=== PATIENT | female | born 1965 | race Caucasian/White ===

== ENCOUNTER 2017-09-14 11:22 | Inpatient (IN) ==
[2017-09-14 11:54] LABS: Basophils # 0.1 K/mcL (0.0-0.2); Eosinophils # 0.3 K/mcL (0.0-0.6); Eosinophils % 3.9 %; Hemoglobin 15.4 g/dL (11.5-15.4); Immature Granulocytes % 0.4 % (0-4); Lymphocytes # 2.2 K/mcL (0.6-4.6); Lymphocytes % 28.8 %; Mean Corpuscular HGB Conc 34.2 g/dL (31.6-35.5); Mean Corpuscular Hemoglobin 29.7 pg (28.0-33.3); Mean Corpuscular Volume 86.9 fL (83.0-100.0); Mean Platelet Volume 9.6 fL (9.4-12.4); Monocytes # 0.5 K/mcL (0.0-1.3); Monocytes % 6.3 %; Neutrophils # 4.6 K/mcL (1.6-8.9); Platelet Count 233 K/mcL (140-400); Red Blood Count 5.18 M/mcL (3.82-4.97); Red Cell Distribution Width 12.4 % (11.5-14.5); Segmented Neutrophils % 59.6 %
[2017-09-14 12:13] LABS: Acetaminophen < 10 mcg/mL (10-20); BUN/Creatinine Ratio 19 (6-26); Blood Urea Nitrogen 15 mg/dL (6-20); Calcium 9.3 mg/dL (8.6-10.3); Carbon Dioxide 25 mEq/L (23-29); Chloride 105 mEq/L (98-107); Ethanol < 10 mg/dL (Less than 10); Glucose 107 mg/dL (70-105); Osmolality,Calculated 285 (280-300); Potassium 3.9 mEq/L (3.5-5.1); Salicylate < 2.5 mg/dL (15.0-30.0); Sodium 137 mEq/L (136-145); eGFR For African Americans > 60 (> 60); eGFR For Non-African Americans > 60 (> 60)
[2017-09-14 12:28] LABS: Bilirubin,Urine Negative (Negative); Blood,Urine Negative (Negative); Color,Urine Yellow (Yellow); Glucose,Urine (UA) Normal (Normal); Ketones,Urine Negative (Negative); Leukocyte Esterase,Urine Small (Negative); Nitrite,Urine Negative (Negative); Protein,Urine Negative (Neg-Trace); Specific Gravity,Urine 1.018 (1.010-1.025); Urobilinogen,Urine Normal (Normal)
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
[2017-09-14 12:31] LABS: Bacteria,Urine Few per hpf (None-Few); Clarity,Urine Clear (Clear); Hyaline Casts,Urine None Seen per lpf (None-Few); RBC,Urine 0-3 per hpf (0-3); Squamous Epithelial Cell,Urine Many per lpf (None-Few)
[2017-09-14 13:03] LABS: Amphetamine Screen,Urine Negative ng/mL (Cutoff=1000); Barbiturate Screen,Urine Negative ng/mL (Cutoff=200); Benzodiazepines Screen,Urine Negative ng/mL (Cutoff=200); Cannabinoid Screen,Urine Negative ng/mL (Cutoff = 50); Cocaine Screen,Urine Negative ng/mL (Cutoff= 300); Opiate Screen,Urine Negative ng/mL (Cutoff=300); Phencyclidine Screen,Urine Negative ng/mL (Cutoff=25)
[2017-09-14] MEDS ORDERED: Mag Hydrox/Al Hydrox/Simeth 30 ML UDC PO PRN (19:52)
[2017-09-14] MEDS ORDERED: Acetaminophen 325 MG TABLET PO PRN (19:52)
[2017-09-14] MEDS ORDERED: *HR* LORazepam 2 MG/ML VIAL IM PRN (19:52)
[2017-09-14] MEDS ORDERED: MOM Conc 10 ML UD.LIQ PO PRN (19:52)
[2017-09-14] MEDS ORDERED: *HR* LORazepam 1 MG TABLET PO PRN (19:52)
[2017-09-14] MEDS ORDERED: Haloperidol Lactate 5 MG/ML VIAL IM PRN (19:52)
[2017-09-14] MEDS: traZODone 50 MG TABLET PO PRN (22:15)
[2017-09-15] MEDS: hydrOXYzine pamoate 25 MG CAPSULE PO PRN (09:12)
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
[2017-09-15] MEDS: FLUoxetine 20 MG CAPSULE PO SCH (11:48)
[2017-09-15] MEDS: Gabapentin 400 MG CAPSULE PO SCH ×2 (15:20→20:54)
[2017-09-15] MEDS ORDERED: Insulin DETEMIR 100 UNIT/ML X5UNITS SQ SCH (21:00)
[2017-09-15] MEDS: clonazePAM 1 MG TABLET PO PRN (21:18)
[2017-09-15] MEDS: Insulin DETEMIR 100 UNIT/ML X5UNITS SQ SCH (22:14)
[2017-09-16] MEDS: FLUoxetine 20 MG CAPSULE PO SCH (08:35)
[2017-09-16] MEDS: Gabapentin 400 MG CAPSULE PO SCH ×3 (08:35→20:15)
[2017-09-16] MEDS: clonazePAM 1 MG TABLET PO PRN ×2 (08:35→20:18)
[2017-09-16] MEDS ORDERED: Insulin DETEMIR 100 UNIT/ML X5UNITS SQ SCH ×2 (09:00→21:00)
--- NOTE | 2017-09-16 14:51 | Psychiatry Progress Note ---
Date of Encounter: 09/16/17 Time of Encounter: 14:48 Subjective Interval history: atient seen for follow-up. Case discussed with treatment team.she denies suicidal ideation, she reports improved sleep,compliant with medication. Awaiting placement. Review of Systems Psychiatric: Reports: depression, anxiety, suicidal ideation, hopelessness Results - Vital Signs Vital Signs: Temp Pulse Resp BP Pulse Ox 97.2 F L 84 16 130/79 94 09/16/17 09:00 09/16/17 09:00 09/16/17 09:00 09/16/17 09:00 09/14/17 17:08 - Labs Labs: Laboratory Results - last 24 hr 09/15/17 09/16/17 21:22 07:43 POC Glucose 173 H 102 H Assessment and Plan (1) Bipolar disorder current episode depressed Current visit: Yes Status: Acute Plan: Continue hospitalization, Close observation, Suicide Precautions per unit protocol, Encourage participation in unit milieu, Group Therapy, Monitor sleep, Monitor appetite Risks, benefits, side effects, alternatives discussed w/pt: Yes Patient agreeable to treatment: Yes Qualifiers: Qualified Code(s): F31.5 - Bipolar disorder, current episode depressed, severe, with psychotic features Consult Discharge Plan - Plan Referrals: [facility] [Outside] - 09/23/17 1:00 pm (The above appointment is with Janice Newby for mental health counselling.You are also scheduled on 10/01/17 at 2pm with Lesli Quesada for psychiatric prescriber follow up. Please call 24 hours in advance if unable to make your appointment.) Psychiatry Exam - Constitutional Vitals: Temp Pulse Resp BP Pulse Ox 97.2 F L 84 16 130/79 94 09/16/17 09:00 09/16/17 09:00 09/16/17 09:00 09/16/17 09:00 09/14/17 17:08 General appearance: age & developmentally appropriate, well-groomed, well- nourished - Musculoskeletal Gait: normal Station: relaxed Strength & Tone: normal for patient - Psychiatric Patient Orientation: Yes Person, Yes Time, Yes Place Level of alertness: Alert Behavior: calm, cooperative Psychomotor activity: Normal Eye Contact: Maintains Eye Contact Mood Description: Euthymic/stable Affect description: congruent with mood, full range Speech Volume: Normal Speech pattern: normal rate, normal rhythm, normal tone, fluent, spontaneous Language & Vocabulary: consistent with education Thought Process: Linear, Goal Oriented, Circumstantial Thought Content: No Suicidal ideation, No Homicidal ideation, No Overt delusions Perceptual Disturbances: No Auditory hallucinations, No Visual hallucinations Attention Span Ability: Capable of Focused Attention Memory Description: Grossly Intact Patient Reliability: Reliable Historian Fund of knowledge: Yes abstraction ability, Yes aware of current events Intelligence Estimate: Average Judgment: Limited Insight: Partial
[2017-09-16 16:36] LABS: BUN/Creatinine Ratio 21 (6-26); Blood Urea Nitrogen 20 mg/dL (6-20); Calcium 9.6 mg/dL (8.6-10.3); Carbon Dioxide 31 mEq/L (23-29); Chloride 103 mEq/L (98-107); Glucose 185 mg/dL (70-105); Osmolality,Calculated 295 (280-300); Potassium 4.4 mEq/L (3.5-5.1); Sodium 139 mEq/L (136-145); eGFR For African Americans > 60 (> 60); eGFR For Non-African Americans 60 (> 60)
[2017-09-16] MEDS: hydrOXYzine pamoate 25 MG CAPSULE PO PRN (20:15)
[2017-09-16] MEDS: traZODone 50 MG TABLET PO PRN (20:15)
[2017-09-16] MEDS: Insulin DETEMIR 100 UNIT/ML X5UNITS SQ SCH (21:15)
[2017-09-17] MEDS: Gabapentin 400 MG CAPSULE PO SCH ×3 (10:09→21:14)
[2017-09-17] MEDS: Insulin DETEMIR 100 UNIT/ML X5UNITS SQ SCH ×2 (10:09→22:52)
[2017-09-17] MEDS: FLUoxetine 20 MG CAPSULE PO SCH (10:09)
--- NOTE | 2017-09-17 15:03 | Psychiatry Progress Note ---
Date of Encounter: 09/17/17 Time of Encounter: 14:52 Subjective Interval history: Patient seen for follow-up. Case discussed with treatment team. She is feeling better more interactive, denied any hopelessness or suicidal thoughts. She is looking forward to possible placement on Wednesday. She is more motivated and positive. Compliant with medication denies any problem with sleep or appetite. Review of Systems Psychiatric: Reports: depression, anxiety, suicidal ideation, hopelessness Results - Vital Signs Vital Signs: Temp Pulse Resp BP Pulse Ox 98.2 F 16 94 112/81 94 09/17/17 09:00 09/17/17 09:00 09/17/17 09:00 09/17/17 09:00 09/14/17 17:08 - Labs Labs: Laboratory Results - last 24 hr 09/16/17 09/16/17 09/17/17 15:56 20:11 09:15 Sodium 139 Potassium 4.4 Chloride 103 Carbon Dioxide 31 H BUN 20 Creatinine 0.97 Est GFR ( Amer) > 60 Est GFR (Non-Af Amer) 60 BUN/Creatinine Ratio 21 Glucose 185 H POC Glucose 256 H 216 H Calculated Osmolality 295 Calcium 9.6 Assessment and Plan (1) Bipolar disorder current episode depressed Current visit: Yes Status: Acute Plan: Continue hospitalization, Close observation, Suicide Precautions per unit protocol, Encourage participation in unit milieu, Group Therapy, Monitor sleep, Monitor appetite Risks, benefits, side effects, alternatives discussed w/pt: Yes Patient agreeable to treatment: Yes Qualifiers: Qualified Code(s): F31.5 - Bipolar disorder, current episode depressed, severe, with psychotic features Consult Discharge Plan - Plan Referrals: [facility] [Outside] (You are going into mental health respite at [facility] on discharge from the hospital. While there, you will be seen daily by the clinic counselors and case resource manager, both individually and in group. ) [facility] - [facility] 1:00 pm (The above appointment is with Janice Newby for mental health counselling.You are also scheduled on 10/01/17 at 2pm with Lesli Quesada for psychiatric prescriber follow up. Please call 24 hours in advance if unable to make your appointment.) Psychiatry Exam - Constitutional Vitals: Temp Pulse Resp BP Pulse Ox 98.2 F 16 94 112/81 94 09/17/17 09:00 09/17/17 09:00 09/17/17 09:00 09/17/17 09:00 09/14/17 17:08 General appearance: age & developmentally appropriate, well-groomed, well- nourished - Musculoskeletal Gait: normal Station: relaxed Strength & Tone: normal for patient - Psychiatric Patient Orientation: Yes Person, Yes Time, Yes Place Level of alertness: Alert Behavior: calm, cooperative Psychomotor activity: Normal Eye Contact: Maintains Eye Contact Mood Description: Euthymic/stable Affect description: congruent with mood, full range Speech Volume: Normal Speech pattern: normal rate, normal rhythm, normal tone, fluent, spontaneous Language & Vocabulary: consistent with education Thought Process: Linear, Goal Oriented Thought Content: No Suicidal ideation, No Homicidal ideation, No Overt delusions Perceptual Disturbances: No Auditory hallucinations, No Visual hallucinations Attention Span Ability: Capable of Focused Attention Memory Description: Grossly Intact Patient Reliability: Reliable Historian Fund of knowledge: Yes abstraction ability, Yes aware of current events Intelligence Estimate: Average Judgment: Limited Insight: Partial
[2017-09-17] MEDS: clonazePAM 1 MG TABLET PO PRN (21:13)
[2017-09-17] MEDS: traZODone 50 MG TABLET PO PRN (21:13)
[2017-09-18] MEDS: Insulin DETEMIR 100 UNIT/ML X5UNITS SQ SCH ×2 (08:26→21:38)
[2017-09-18] MEDS: FLUoxetine 20 MG CAPSULE PO SCH (08:26)
[2017-09-18] MEDS: Gabapentin 400 MG CAPSULE PO SCH ×3 (08:26→21:39)
--- NOTE | 2017-09-18 13:57 | Psychiatry Progress Note ---
Date of Encounter: 09/18/17 Time of Encounter: 13:00 Subjective Interval history: Patient seen for follow-up. Case discussed was nursing staff. She denies any hallucinations or suicidal ideation, denies any problem with sleep or appetite. Participated in activities. Tolerating medication. Her diabetic control is improving. She is awaiting placement next week. Review of Systems Psychiatric: Reports: depression, anxiety, suicidal ideation, hopelessness Results - Vital Signs Vital Signs: Temp Pulse Resp BP Pulse Ox 98.3 F 81 16 120/79 94 09/18/17 09:00 09/18/17 09:00 09/18/17 09:00 09/18/17 09:00 09/14/17 17:08 - Labs Labs: Laboratory Results - last 24 hr 09/17/17 09/18/17 22:09 08:12 POC Glucose 244 H 150 H Assessment and Plan (1) Bipolar disorder current episode depressed Current visit: Yes Status: Acute Plan: Continue hospitalization, Close observation, Suicide Precautions per unit protocol, Encourage participation in unit milieu, Group Therapy, Monitor sleep, Monitor appetite Risks, benefits, side effects, alternatives discussed w/pt: Yes Patient agreeable to treatment: Yes Qualifiers: Qualified Code(s): F31.5 - Bipolar disorder, current episode depressed, severe, with psychotic features Consult Discharge Plan - Plan Referrals: [facility] [Outside] (You are going into mental health respite at [facility] on discharge from the hospital. While there, you will be seen daily by the clinic counselors and case repairer, both individually and in group. ) [facility]/17 1:00 pm (The above appointment is with Janice Newby for mental health counselling.You are also scheduled on 10/01/17 at 2pm with Lesli Quesada for psychiatric prescriber follow up. Please call 24 hours in advance if unable to make your appointment.) Psychiatry Exam - Constitutional Vitals: Temp Pulse Resp BP Pulse Ox 98.3 F 81 16 120/79 94 09/18/17 09:00 09/18/17 09:00 09/18/17 09:00 09/18/17 09:00 09/14/17 17:08 General appearance: age & developmentally appropriate, well-groomed, well- nourished - Musculoskeletal Gait: normal Station: relaxed Strength & Tone: normal for patient - Psychiatric Patient Orientation: Yes Person, Yes Time, Yes Place Level of alertness: Alert Behavior: calm, cooperative Psychomotor activity: Increased Eye Contact: Maintains Eye Contact Mood Description: Euthymic/stable Affect description: congruent with mood, full range Speech Volume: Normal Speech pattern: normal rate, normal rhythm, normal tone, fluent, spontaneous Language & Vocabulary: consistent with education Thought Process: Linear, Goal Oriented Thought Content: No Suicidal ideation, No Homicidal ideation, No Overt delusions Perceptual Disturbances: No Auditory hallucinations, No Visual hallucinations Attention Span Ability: Capable of Focused Attention Memory Description: Grossly Intact Patient Reliability: Reliable Historian Fund of knowledge: Yes abstraction ability, Yes aware of current events Intelligence Estimate: Average Judgment: Limited Insight: Partial
[2017-09-18] MEDS: clonazePAM 1 MG TABLET PO PRN ×2 (13:59→21:39)
[2017-09-18] MEDS: traZODone 50 MG TABLET PO PRN (21:39)
[2017-09-18] MEDS: hydrOXYzine pamoate 25 MG CAPSULE PO PRN (21:40)
[2017-09-19] MEDS: FLUoxetine 20 MG CAPSULE PO SCH (08:43)
[2017-09-19] MEDS: Gabapentin 400 MG CAPSULE PO SCH ×3 (08:44→20:48)
[2017-09-19] MEDS: Insulin DETEMIR 100 UNIT/ML X5UNITS SQ SCH ×2 (08:44→20:46)
[2017-09-19] MEDS: clonazePAM 1 MG TABLET PO PRN ×2 (08:44→20:48)
--- NOTE | 2017-09-19 11:33 | Psychiatry Progress Note ---
Date of Encounter: 09/19/17 Time of Encounter: 10:40 Subjective Interval history: Patient seen for follow-up. Case discussed was nursing staff. Patient is doing well compliant with medication participate in activities. Denied any suicidal ideation, optimistic and looking forward to discharge to respite next week. No behavioral agitation. Review of Systems Psychiatric: Reports: depression, anxiety, suicidal ideation, hopelessness Results - Vital Signs Vital Signs: Temp Pulse Resp BP Pulse Ox 97.8 F 83 18 130/86 94 09/19/17 08:59 09/19/17 08:59 09/19/17 08:59 09/19/17 08:59 09/14/17 17:08 - Labs Labs: Laboratory Results - last 24 hr 09/18/17 09/19/17 22:29 07:56 POC Glucose 307 H 144 H Assessment and Plan (1) Bipolar disorder current episode depressed Current visit: Yes Status: Acute Plan: Continue hospitalization, Close observation, Suicide Precautions per unit protocol, Encourage participation in unit milieu, Group Therapy, Monitor sleep, Monitor appetite Risks, benefits, side effects, alternatives discussed w/pt: Yes Patient agreeable to treatment: Yes Qualifiers: Qualified Code(s): F31.5 - Bipolar disorder, current episode depressed, severe, with psychotic features Consult Discharge Plan - Plan Referrals: [facility] [Outside] (You are going into mental health respite at [facility] on discharge from the hospital. While there, you will be seen daily by the clinic counselors and case assembler, both individually and in group. ) [facility] 1:00 pm (The above appointment is with Janice Newby for mental health counselling.You are also scheduled on 10/01/17 at 2pm with Lesli Quesada for psychiatric prescriber follow up. Please call 24 hours in advance if unable to make your appointment.) Psychiatry Exam - Constitutional Vitals: Temp Pulse Resp BP Pulse Ox 97.8 F 83 18 130/86 94 09/19/17 08:59 09/19/17 08:59 09/19/17 08:59 09/19/17 08:59 09/14/17 17:08 General appearance: age & developmentally appropriate, well-groomed, well- nourished - Musculoskeletal Gait: normal Station: relaxed Strength & Tone: normal for patient - Psychiatric Patient Orientation: Yes Person, Yes Time, Yes Place Level of alertness: Alert Behavior: calm, cooperative Psychomotor activity: Normal Eye Contact: Maintains Eye Contact Mood Description: Euthymic/stable Affect description: congruent with mood, full range, anxious Speech Volume: Normal Speech pattern: normal rate, normal rhythm, normal tone, fluent, spontaneous Language & Vocabulary: consistent with education Thought Process: Linear, Goal Oriented Thought Content: No Suicidal ideation, No Homicidal ideation, No Overt delusions Perceptual Disturbances: No Auditory hallucinations, No Visual hallucinations Attention Span Ability: Capable of Focused Attention Memory Description: Grossly Intact Patient Reliability: Reliable Historian Fund of knowledge: Yes abstraction ability, Yes aware of current events Intelligence Estimate: Average Judgment: Limited Insight: Partial
[2017-09-19] MEDS: traZODone 50 MG TABLET PO PRN (20:48)
[2017-09-20] MEDS: Gabapentin 400 MG CAPSULE PO SCH ×3 (08:36→20:44)
[2017-09-20] MEDS: FLUoxetine 20 MG CAPSULE PO SCH (08:36)
[2017-09-20] MEDS: Insulin DETEMIR 100 UNIT/ML X5UNITS SQ SCH ×2 (08:37→21:55)
[2017-09-20] MEDS: clonazePAM 1 MG TABLET PO PRN ×3 (08:40→20:48)
--- NOTE | 2017-09-20 11:43 | Psychiatry Progress Note ---
Date of Encounter: 09/20/17 Time of Encounter: 11:30 Subjective Interval history: Patient tells me today "I am alright". She states that the reason she was feeling suicidal was over conflict with her son. She states that the stress over that is slowly going away. She finds herself still isolating and having low energy. She asks about a medication change in regards to a possible increase in her antidepressant,which she has been on a long time with no increased dosing in the past year. I discussed with her increasing her Prozac to 60 mg from 40mg which she was agreeable to. She finds that the medication used to be helpful, but does not feel like it is helping much anymore. She states that she does not think it was because she was not being compliant with the Prozac She has stress over being homeless, but there is a possibility of placement [facility]. She states her appetites improving, her sleep is good. She denies any suicidal/homicidal ideation at this time. She denies any auditory or visual hallucinations. She is making preparation for possible discharge tomorrow once [facility] housing is confirmed for her. Review of Systems Psychiatric: Reports: depression, anxiety, suicidal ideation, hopelessness Results - Vital Signs Vital Signs: Temp Pulse Resp BP Pulse Ox 97.2 F L 84 18 135/80 94 09/20/17 09:00 09/20/17 09:00 09/20/17 09:00 09/20/17 09:00 09/14/17 17:08 - Labs Labs: Laboratory Results - last 24 hr 09/19/17 09/20/17 20:28 07:50 POC Glucose 245 H 145 H Assessment and Plan (1) Bipolar disorder current episode depressed Current visit: Yes Status: Acute Plan: Continue hospitalization, Close observation, Suicide Precautions per unit protocol, Group Therapy Risks, benefits, side effects, alternatives discussed w/pt: Yes (Increase in Prozac targeting depression) Patient agreeable to treatment: Yes Qualifiers: Current episode severity: moderate Qualified Code(s): F31.32 - Bipolar disorder, current episode depressed, moderate Consult Discharge Plan - Plan Referrals: [facility] [Outside] (You are going into mental health respite at [facility] on discharge from the hospital. While there, you will be seen daily by the clinic counselors and behavioral health case manager, both individually and in group. ) [facility] - 09/23/17 1:00 pm (The above appointment is with Janice Newby for mental health counselling.You are also scheduled on 10/01/17 at 2pm with Lesli Quesada for psychiatric prescriber follow up. Please call 24 hours in advance if unable to make your appointment.) Psychiatry Exam - Constitutional Vitals: Temp Pulse Resp BP Pulse Ox 97.2 F L 84 18 135/80 94 09/20/17 09:00 09/20/17 09:00 09/20/17 09:00 09/20/17 09:00 09/14/17 17:08 General appearance: age & developmentally appropriate, well-groomed, well- nourished - Musculoskeletal Gait: normal Station: erect Strength & Tone: normal for patient - Psychiatric Patient Orientation: Yes Person, Yes Time, Yes Place, Yes Circumstance Level of alertness: Alert Behavior: calm Psychomotor activity: Normal Eye Contact: Maintains Eye Contact Mood Description: Euthymic/stable Affect description: congruent with mood Speech Volume: Normal Speech pattern: normal rate, normal rhythm, normal tone Language & Vocabulary: consistent with education Thought Process: Intact, Logical, Linear Thought Content: Yes Intact Attention Span Ability: Capable of Focused Attention Memory Description: Grossly Intact Patient Reliability: Reliable Historian Fund of knowledge: Yes abstraction ability Intelligence Estimate: Average Judgment: Fair Insight: Partial
[2017-09-20] MEDS: traZODone 50 MG TABLET PO PRN (20:44)
[2017-09-21] MEDS: Insulin DETEMIR 100 UNIT/ML X5UNITS SQ SCH (08:14)
[2017-09-21] MEDS: Gabapentin 400 MG CAPSULE PO SCH ×2 (08:16→14:26)
[2017-09-21] MEDS ORDERED: FLUoxetine 20 MG CAPSULE PO SCH (09:00)
[2017-09-21 09:34] VITALS: BP 122/82
[2017-09-21] MEDS: clonazePAM 1 MG TABLET PO PRN ×2 (09:59→14:26)
--- NOTE | 2017-09-21 13:47 | Discharge Summary ---
Date of Encounter: 09/21/17 Time of Encounter: 13:40 Diagnosis - Discharge Diagnosis (1) Bipolar disorder current episode depressed Status: Acute Qualifiers: Current episode severity: moderate Qualified Code(s): F31.32 - Bipolar disorder, current episode depressed, moderate Medications - Discharge Medications Prescriptions: FLUoxetine HCl [Prozac] 60 mg PO DAILY 30 Days #30 capsule traZODone [TraZODone] 50 mg PO HS PRN 30 Days #30 tablet PRN Reason: Insomnia Gabapentin [Neurontin] 800 mg PO TID #90 tablet 02/25/16 [Rx] Doxepin [Sinequan] 25 mg PO DAILY 09/15/17 [History] Insulin Glargine,Hum.rec.anlog [Lantus Solostar] 20 units SQ QAM 09/15/17 [ History] Insulin Glargine,Hum.rec.anlog [Lantus Solostar] 30 units SQ HS 09/15/17 [ History] Lurasidone HCl [Latuda] 80 mg PO HS 09/15/17 [History] clonazePAM [Klonopin] 2 mg PO TID PRN 09/15/17 [History] hydrOXYzine pamoate [HydrOXYzine Pamoate] 50 mg PO TID PRN 09/15/17 [History] FLUoxetine HCl [Prozac] 60 mg PO DAILY 30 Days #30 capsule 09/21/17 [Rx] traZODone [TraZODone] 50 mg PO HS PRN 30 Days #30 tablet 09/21/17 [Rx] 3 Allergy/AdvReac Type Severity Reaction Status Date / Time No Known Allergies Allergy Verified 09/15/17 09:13 Results Procedures and tests throughout hospitalization: Completed Lab Orders Category Date Time Status Chem 7 [Basic Metabolic Panel] Routine Lab 09/16/17 15:56 Completed Provider Date of admission: 09/14/17 16:45 Primary care physician: PCP NONE Psychiatry Exam - Constitutional Vitals: Temp Pulse Resp BP Pulse Ox 98.5 F 87 18 122/82 94 09/21/17 09:00 09/21/17 09:00 09/21/17 09:00 09/21/17 09:00 09/14/17 17:08 General appearance: age & developmentally appropriate - Musculoskeletal Gait: normal Station: slouched Strength & Tone: normal for patient - Psychiatric Patient Orientation: Yes Person, Yes Time, Yes Place, Yes Circumstance Level of alertness: Alert Behavior: calm Psychomotor activity: Normal Eye Contact: Maintains Eye Contact Mood Description: Euthymic/stable Affect description: congruent with mood Speech Volume: Normal Speech pattern: normal rate, normal rhythm, normal tone Language & Vocabulary: consistent with education Thought Process: Intact, Logical, Linear Thought Content: Yes Intact Attention Span Ability: Capable of Focused Attention Memory Description: Grossly Intact Patient Reliability: Reliable Historian Fund of knowledge: Yes abstraction ability Intelligence Estimate: Average Judgment: Good Insight: Full Hospital Course Hospital course: Ms. Rutledge is a 52 year old female who was being treated for depression. When I meet with her today, she tells me, "I feel good". She denies any side effects from the increase in Prozac targeting her depression. She states she is not isolating as much as she used to and feels more hopeful about the future. She is pleased that she was able to get into [place] for her temporary housing. She states the Trazodone is helping her "get some really good sleep." She states she slept 7 hours last night which is a great improvement for her. She is no longer depressed. No SI/HI. No A/V hallucination. Her mood is stable. No other issues. She assures me that she will keep her follow up appointments with therapy and medication management. Time spent discussing smoking cessation with patient: 3 to 10 minutes Does patient wish to continue nicotine replacement upon disc: No - Time Spent with Patient Total time spent providing and/or coordinating discharge services:20 min Less than 30 minutes Assessment and Plan - Patient/Caregiver Discharge Instructions Activity: resume usual activities as tolerated Diet: diabetic diet - Follow up Plan [facility]Outside[facility] (You are going into mental health respite at [facility] on discharge from the hospital. While there, you will be seen daily by the clinic counselors and case monitor, both individually and in group. ) [facility] - 09/23/17 1:00 pm (The above appointment is with Janice Newby for mental health counselling.You are also scheduled on 10/01/17 at 2pm with Lesli Quesada for psychiatric prescriber follow up. Please call 24 hours in advance if unable to make your appointment.) Functional capacity at discharge: independent ambulation Overall status at discharge: Stable Disposition: Transfer Other Quality - Multiple Antipsychotics Patient discharged on 2 or more antipsychotic medications: No Procedures - Procedures Procedures: Medication Management, Crisis Stabilization, Supportive Therapy, Group Therapy
== END 2017-09-21 18:00 | disposition other institution (70) | DRG 885 ==
LOC: EMEROO 11:22 → 1ANU 16:45 → SUATTDRO 16:45 → 1ANU 16:49
PROVIDERS: ADMIT Psychiatry & Neurology Psychiatry; ATTEND Psychiatry & Neurology Psychiatry

== ENCOUNTER 2019-07-14 17:26 | Inpatient (IN) ==
[2019-07-14 17:55] LABS: Basophils # 0.1 K/mcL (0.0-0.2); Basophils % 0.9 %; Eosinophils # 0.3 K/mcL (0.0-0.6); Eosinophils % 3.2 %; Hematocrit 42.5 % (35.3-44.9); Hemoglobin 14.1 g/dL (11.5-15.4); Immature Granulocytes % 0.4 % (0-4); Lymphocytes # 2.8 K/mcL (0.6-4.6); Lymphocytes % 35.2 %; Mean Corpuscular HGB Conc 33.2 g/dL (31.6-35.5); Mean Corpuscular Hemoglobin 28.8 pg (28.0-33.3); Mean Corpuscular Volume 86.9 fL (83.0-100.0); Mean Platelet Volume 9.8 fL (9.4-12.4); Monocytes # 0.5 K/mcL (0.0-1.3); Monocytes % 6.4 %; Neutrophils # 4.2 K/mcL (1.6-8.9); Platelet Count 257 K/mcL (140-400); Red Blood Count 4.89 M/mcL (3.82-4.97); Red Cell Distribution Width 12.8 % (11.5-14.5); Segmented Neutrophils % 53.9 %; White Blood Count 7.8 K/mcL (4.3-11.1)
[2019-07-14 18:14] LABS: Acetaminophen < 10 mcg/mL (10-20); BUN/Creatinine Ratio 21 (6-26); Blood Urea Nitrogen 15 mg/dL (6-20); Carbon Dioxide 25 mEq/L (23-29); Chloride 101 mEq/L (98-107); Ethanol < 10 mg/dL (Less than 10); Glucose 301 mg/dL (70-105); Osmolality,Calculated 286 (280-300); Potassium 4.1 mEq/L (3.5-5.1); Salicylate < 2.5 mg/dL (15.0-30.0); Sodium 132 mEq/L (136-145); eGFR For African Americans > 60 (> 60); eGFR For Non-African Americans > 60 (> 60)
[2019-07-14 18:58] LABS: Bilirubin,Urine Negative (Negative); Blood,Urine Negative (Negative); Clarity,Urine Clear (Clear); Color,Urine Yellow (Yellow); Glucose,Urine (UA) >=1000 mg/dL (Normal); Ketones,Urine Negative (Negative); Leukocyte Esterase,Urine Small (Negative); Nitrite,Urine Negative (Negative); Protein,Urine Negative (Neg-Trace); Specific Gravity,Urine 1.028 (1.010-1.025); Urobilinogen,Urine Normal (Normal)
[2019-07-14 18:59] LABS: Bacteria,Urine None Seen per hpf (None-Few); Hyaline Casts,Urine None Seen per lpf (None-Few); RBC,Urine 0-3 per hpf (0-3); Squamous Epithelial Cell,Urine Many per lpf (None-Few); WBC,Urine 30-50 per hpf (0-3)
[2019-07-14 19:10] LABS: Transitional Epi Cells,Urine Few per hpf (None-Few)
[2019-07-14 19:22] LABS: Amphetamine Screen,Urine Positive ng/mL (Cutoff=1000); Barbiturate Screen,Urine Negative ng/mL (Cutoff=200); Benzodiazepines Screen,Urine Negative ng/mL (Cutoff=200); Cannabinoid Screen,Urine Negative ng/mL (Cutoff = 50); Cocaine Screen,Urine Negative ng/mL (Cutoff= 300); Opiate Screen,Urine Negative ng/mL (Cutoff=300); Phencyclidine Screen,Urine Negative ng/mL (Cutoff=25)
[2019-07-14] MEDS ORDERED: cephALEXin 250 MG CAPSULE PO ONE (20:06)
[2019-07-14] MEDS ORDERED: *HR* LORazepam 2 MG/ML VIAL IM PRN (22:34)
[2019-07-14] MEDS ORDERED: MOM Conc 10 ML UD.LIQ PO PRN (22:34)
[2019-07-14] MEDS ORDERED: Mag Hydrox/Al Hydrox/Simeth 30 ML UDC PO PRN (22:34)
[2019-07-14] MEDS ORDERED: hydrOXYzine pamoate 25 MG CAPSULE PO PRN (22:34)
[2019-07-14] MEDS ORDERED: haloperidoL 5 MG TABLET PO PRN (22:34)
[2019-07-14] MEDS ORDERED: QUEtiapine Fumarate 25 MG TABLET PO PRN (22:34)
[2019-07-14] MEDS ORDERED: *HR* LORazepam 1 MG TABLET PO PRN (22:34)
[2019-07-14] MEDS ORDERED: Haloperidol Lactate 5 MG/ML VIAL IM PRN (22:34)
[2019-07-14] MEDS: Ibuprofen 400 MG TABLET PO PRN (23:48)
[2019-07-15] MEDS: Gabapentin 400 MG CAPSULE PO SCH ×3 (10:19→20:35)
[2019-07-15] MEDS: clonazePAM 1 MG TABLET PO PRN ×2 (10:22→20:35)
[2019-07-15] MEDS: Insulin LISPRO 300 UNITS/3 ML VIAL SQ SCH ×3 (11:19→20:44)
[2019-07-15] MEDS: cephALEXin 500 MG CAPSULE PO SCH ×2 (14:23→20:35)
[2019-07-15] MEDS: Ibuprofen 400 MG TABLET PO PRN (20:35)
[2019-07-15] MEDS: QUEtiapine Fumarate 100 MG TABLET PO SCH (20:35)
[2019-07-16 08:14] LABS: Estimated Average Glucose 295 mg/dl
[2019-07-16] MEDS: Insulin LISPRO 300 UNITS/3 ML VIAL SQ SCH ×4 (08:31→20:44)
[2019-07-16] MEDS: cephALEXin 500 MG CAPSULE PO SCH ×2 (08:34→20:41)
[2019-07-16] MEDS: Gabapentin 400 MG CAPSULE PO SCH ×3 (08:34→20:41)
[2019-07-16 10:44] LABS: Chol/HDL Ratio 4.8 (0-4.9)
[2019-07-16 10:59] LABS: Thyroid Stimulating Hormone 3.728 mcIU/mL (0.340-5.600)
[2019-07-16] MEDS: QUEtiapine Fumarate 100 MG TABLET PO SCH (20:41)
[2019-07-17] MEDS: Insulin LISPRO 300 UNITS/3 ML VIAL SQ SCH (07:43)
[2019-07-17] MEDS: cephALEXin 500 MG CAPSULE PO SCH (08:42)
[2019-07-17] MEDS: Gabapentin 400 MG CAPSULE PO SCH (08:42)
[2019-07-17 09:30] VITALS: BP 116/72
== END 2019-07-17 10:50 | disposition home or self-care (01) ==
LOC: EMEROOARM 17:26 → 1ANU 17:26
PROVIDERS: ADMIT Psychiatry & Neurology Psychiatry; ATTEND Psychiatry & Neurology Psychiatry

== ENCOUNTER 2019-10-11 12:40 | Observation (INO) ==
[2019-10-11 13:44] LABS: Basophils # 0.1 K/mcL (0.0-0.2); Basophils % 0.7 %; Eosinophils # 0.2 K/mcL (0.0-0.6); Eosinophils % 2.1 %; Hematocrit 44.8 % (35.3-44.9); Hemoglobin 14.3 g/dL (11.5-15.4); Immature Granulocytes % 0.4 % (0-4); Lymphocytes # 1.7 K/mcL (0.6-4.6); Lymphocytes % 23.2 %; Mean Corpuscular HGB Conc 31.9 g/dL (31.6-35.5); Mean Corpuscular Hemoglobin 26.9 pg (28.0-33.3); Mean Corpuscular Volume 84.4 fL (83.0-100.0); Mean Platelet Volume 9.9 fL (9.4-12.4); Monocytes # 0.5 K/mcL (0.0-1.3); Monocytes % 6.3 %; Neutrophils # 4.8 K/mcL (1.6-8.9); Platelet Count 195 K/mcL (140-400); Red Blood Count 5.31 M/mcL (3.82-4.97); Red Cell Distribution Width 13.2 % (11.5-14.5); Segmented Neutrophils % 67.3 %; White Blood Count 7.2 K/mcL (4.3-11.1)
[2019-10-11 13:50] LABS: Bacteria,Urine Few per hpf (None-Few); Bilirubin,Urine Negative (Negative); Blood,Urine Negative (Negative); Clarity,Urine Clear (Clear); Color,Urine Light-Yellow (Yellow); Glucose,Urine (UA) >=1000 mg/dL (Normal); Ketones,Urine Negative (Negative); Leukocyte Esterase,Urine Moderate (Negative); Mucus,Urine Few per lpf (None-Few); Nitrite,Urine Negative (Negative); PH,Urine 5.5 pH Units (5.0-8.0); Protein,Urine Trace mg/dL (Neg-Trace); Specific Gravity,Urine > 1.030 (1.010-1.025); Squamous Epithelial Cell,Urine Few per hpf (None-Few); Urobilinogen,Urine Normal (Normal)
[2019-10-11 13:55] LABS: Amphetamine Screen,Urine Negative ng/mL (Cutoff=1000); Barbiturate Screen,Urine Negative ng/mL (Cutoff=200); Benzodiazepines Screen,Urine Negative ng/mL (Cutoff=200); Cannabinoid Screen,Urine Negative ng/mL (Cutoff = 50); Cocaine Screen,Urine Negative ng/mL (Cutoff= 300); Opiate Screen,Urine Negative ng/mL (Cutoff=300); Phencyclidine Screen,Urine Negative ng/mL (Cutoff=25)
[2019-10-11 14:02] LABS: Acetaminophen < 10 mcg/mL (10-20); BUN/Creatinine Ratio 18 (6-26); Blood Urea Nitrogen 16 mg/dL (6-20); Calcium 8.8 mg/dL (8.6-10.3); Carbon Dioxide 25 mEq/L (23-29); Chloride 100 mEq/L (98-107); Ethanol < 10 mg/dL (Less than 10); Glucose 404 mg/dL (70-105); Osmolality,Calculated 290 (280-300); Potassium 4.3 mEq/L (3.5-5.1); Salicylate < 2.5 mg/dL (15.0-30.0); Sodium 131 mEq/L (136-145); eGFR For African Americans > 60 (> 60); eGFR For Non-African Americans > 60 (> 60)
[2019-10-11] MEDS ORDERED: NON-FORMULARY MEDICATION 1 EACH EACH (Fluticasone Propionate [Flovent Hfa] 2 PUFF) IH PRN (15:54)
[2019-10-11] MEDS ORDERED: QUEtiapine Fumarate 25 MG TABLET PO PRN (15:56)
[2019-10-11] MEDS ORDERED: MOM Conc 10 ML UD.LIQ PO PRN (15:56)
[2019-10-11] MEDS ORDERED: Haloperidol Lactate 5 MG/ML VIAL IM PRN (15:56)
[2019-10-11] MEDS ORDERED: Ibuprofen 400 MG TABLET PO PRN (15:56)
[2019-10-11] MEDS ORDERED: haloperidoL 5 MG TABLET PO PRN (15:56)
[2019-10-11] MEDS ORDERED: *HR* LORazepam 1 MG TABLET PO PRN (15:56)
[2019-10-11] MEDS ORDERED: *HR* LORazepam 2 MG/ML VIAL IM PRN (15:56)
[2019-10-11] MEDS ORDERED: hydrOXYzine pamoate 25 MG CAPSULE PO PRN (15:56)
[2019-10-11] MEDS ORDERED: Mag Hydrox/Al Hydrox/Simeth 30 ML UDC PO PRN (15:56)
[2019-10-11] MEDS: Gabapentin 400 MG CAPSULE PO SCH ×2 (16:33→20:36)
[2019-10-11] MEDS: clonazePAM 1 MG TABLET PO SCH ×2 (16:34→20:36)
[2019-10-11] MEDS: risperiDONE 1 MG TABLET PO SCH (20:36)
[2019-10-11] MEDS ORDERED: QUEtiapine Fumarate 300 MG TABLET PO SCH (21:00)
[2019-10-11] MEDS ORDERED: Insulin DETEMIR 100 UNIT/ML X5UNITS SQ SCH (21:00)
[2019-10-12 07:29] VITALS: BP 125/89
[2019-10-12] MEDS: risperiDONE 1 MG TABLET PO SCH (08:43)
[2019-10-12] MEDS: Gabapentin 400 MG CAPSULE PO SCH (08:43)
[2019-10-12] MEDS: clonazePAM 1 MG TABLET PO SCH (08:43)
[2019-10-12] MEDS ORDERED: Insulin DETEMIR 100 UNIT/ML X5UNITS SQ SCH (09:00)
== END 2019-10-12 13:00 | disposition home or self-care (01) ==
LOC: EMEROOARM 12:40 → 1ANU 15:26 → INTOOBSV 15:56 → 1ANU 16:47
PROVIDERS: ADMIT Psychiatry & Neurology Psychiatry; ATTEND Psychiatry & Neurology Psychiatry

== ENCOUNTER 2020-08-28 14:31 | Inpatient (IN) ==
[2020-08-28] MEDS ORDERED: 0.9 % Sodium Chloride 1,000 ML IVC ONE (17:08)
[2020-08-28] MEDS ORDERED: Vancomycin 1,250 MG/262.5 ML IV.SOLN IVPB ONE (17:08)
[2020-08-28] MEDS ORDERED: Cefepime HCl 2,000 MG in Water for inj. (sterile) 20 ML IVP ONE (17:08)
[2020-08-28] MEDS ORDERED: Morphine Sulfate 2 MG/ML SYRINGE IVP ONE (17:53)
[2020-08-28 18:13] LABS: Basophils # 0.1 K/mcL (0.0-0.2); Basophils % 0.8 %; Eosinophils # 0.2 K/mcL (0.0-0.6); Eosinophils % 2.3 %; Hematocrit 46.1 % (35.3-44.9); Hemoglobin 15.4 g/dL (11.5-15.4); Immature Granulocytes % 0.4 % (0-4); Lymphocytes # 2.4 K/mcL (0.6-4.6); Lymphocytes % 26.1 %; Mean Corpuscular HGB Conc 33.4 g/dL (31.6-35.5); Mean Corpuscular Hemoglobin 28.2 pg (28.0-33.3); Mean Corpuscular Volume 84.3 fL (83.0-100.0); Mean Platelet Volume 10.1 fL (9.4-12.4); Monocytes # 0.7 K/mcL (0.0-1.3); Neutrophils # 5.8 K/mcL (1.6-8.9); Platelet Count 250 K/mcL (140-400); Red Blood Count 5.47 M/mcL (3.82-4.97); Red Cell Distribution Width 13.7 % (11.5-14.5); Segmented Neutrophils % 62.4 %; White Blood Count 9.3 K/mcL (4.3-11.1)
[2020-08-28 18:21] LABS: Prothrombin Time 11.3 Seconds (9.4-12.1)
[2020-08-28 18:24] LABS: Activated Partial Thrombo Time 28.8 Seconds (26.0-36.0)
[2020-08-28 18:28] LABS: Alanine Aminotransferase 27 Units/L (7-52); Albumin 4.2 g/dL (3.5-5.7); Albumin/Globulin Ratio 1.1 (1.1-2.2); Alkaline Phosphatase 106 Units/L (34-104); Aspartate Amino Transferase 14 Units/L (13-39); BUN/Creatinine Ratio 28 (6-26); Bilirubin,Direct 0.1 mg/dL (0.0-0.2); Bilirubin,Indirect 0.5 mg/dL (0.0-1.0); Bilirubin,Total 0.6 mg/dL (0.3-1.0); Blood Urea Nitrogen 23 mg/dL (6-20); Calcium 9.9 mg/dL (8.6-10.3); Carbon Dioxide 26 mEq/L (23-29); Chloride 95 mEq/L (98-107); Glucose 393 mg/dL (70-105); Magnesium 2.1 mg/dL (1.6-2.6); Osmolality,Calculated 292 (280-300); Phosphorous 3.8 mg/dL (2.7-4.5); Potassium 4.3 mEq/L (3.5-5.1); Sodium 131 mEq/L (136-145); Total Protein 8.2 g/dL (6.4-8.9); eGFR For African Americans > 60 (> 60); eGFR For Non-African Americans > 60 (> 60)
[2020-08-28 18:29] LABS: Troponin I < 0.03 ng/mL (< 0.04)
[2020-08-28] MEDS ORDERED: Insulin Human Regular 10 UNIT in 0.9 % Sodium Chloride 10 ML IV ONE (18:56)
[2020-08-28] MEDS ORDERED: Melatonin 3 MG TABLET PO PRN (20:12)
[2020-08-28] MEDS ORDERED: Naloxone 0.4 MG/ML INJ IVP PRN (20:12)
[2020-08-28] MEDS ORDERED: Ondansetron 4 MG/2 ML VIAL IVP PRN (20:12)
[2020-08-28 20:18] LABS: Bilirubin,Urine Negative (Negative); Blood,Urine Negative (Negative); Budding Yeast,Urine Many per hpf (None Seen); Clarity,Urine Turbid (Clear); Color,Urine Light-Yellow (Yellow); Glucose,Urine (UA) >=1000 mg/dL (Normal); Ketones,Urine Negative (Negative); Leukocyte Esterase,Urine Moderate (Negative); Nitrite,Urine Negative (Negative); Protein,Urine Negative (Neg-Trace); RBC,Urine TNTC per hpf (0-3); Specific Gravity,Urine > 1.030 (1.010-1.025); Squamous Epithelial Cell,Urine Few per hpf (None-Few); Urobilinogen,Urine Normal (Normal); WBC,Urine TNTC per hpf (0-3)
[2020-08-28] MEDS ORDERED: *HR* Dextrose 50 % in Water (Vial) 50 ML VIAL IVP PRN (20:18)
[2020-08-28] MEDS ORDERED: D5% in Water 1,000 ML IVC PRN (20:18)
[2020-08-28] MEDS ORDERED: Dextrose Gel 15 GM/37.5 ML TUBE PO PRN ×2 (20:18)
[2020-08-28 21:48] LABS: Estimated Average Glucose 381 mg/dl; Hemoglobin A1C 14.9 %
[2020-08-28] MEDS: Cefepime HCl 1,000 MG in Water for inj. (sterile) 10 ML IVP SCH (23:14)
[2020-08-28] MEDS: *HR* HYDROcodone/Acet 5/325 mg TABLET PO PRN (23:14)
[2020-08-28] MEDS: Insulin LISPRO 300 UNITS/3 ML VIAL SUBQ SCH (23:14)
[2020-08-28] MEDS: Insulin DETEMIR 100 UNIT/ML X5UNITS SUBQ SCH (23:14)
[2020-08-29 01:01] LABS: Basophils # 0.1 K/mcL (0.0-0.2); Basophils % 0.8 %; Eosinophils # 0.3 K/mcL (0.0-0.6); Eosinophils % 3.1 %; Hematocrit 42.2 % (35.3-44.9); Hemoglobin 13.9 g/dL (11.5-15.4); Immature Granulocytes % 0.4 % (0-4); Lymphocytes # 2.4 K/mcL (0.6-4.6); Lymphocytes % 26.9 %; Mean Corpuscular HGB Conc 32.9 g/dL (31.6-35.5); Mean Corpuscular Volume 85.1 fL (83.0-100.0); Monocytes # 0.7 K/mcL (0.0-1.3); Monocytes % 7.4 %; Neutrophils # 5.5 K/mcL (1.6-8.9); Platelet Count 210 K/mcL (140-400); Red Blood Count 4.96 M/mcL (3.82-4.97); Red Cell Distribution Width 13.9 % (11.5-14.5); Segmented Neutrophils % 61.4 %; White Blood Count 8.9 K/mcL (4.3-11.1)
[2020-08-29 01:12] LABS: BUN/Creatinine Ratio 30 (6-26); Blood Urea Nitrogen 19 mg/dL (6-20); Calcium 8.4 mg/dL (8.6-10.3); Carbon Dioxide 23 mEq/L (23-29); Chloride 102 mEq/L (98-107); Glucose 343 mg/dL (70-105); Osmolality,Calculated 294 (280-300); Potassium 3.6 mEq/L (3.5-5.1); Sodium 134 mEq/L (136-145); eGFR For African Americans > 60 (> 60); eGFR For Non-African Americans > 60 (> 60)
[2020-08-29] MEDS: Insulin LISPRO 300 UNITS/3 ML VIAL SUBQ SCH ×3 (05:42→19:02)
[2020-08-29] MEDS: clonazePAM 1 MG TABLET PO SCH ×3 (07:45→21:45)
[2020-08-29] MEDS: Cefepime HCl 1,000 MG in Water for inj. (sterile) 10 ML IVP SCH (07:46)
[2020-08-29] MEDS: *HR* HYDROcodone/Acet 5/325 mg TABLET PO PRN ×2 (07:59→19:19)
[2020-08-29] MEDS: Piperacillin/Tazobactam 3.375 GM in 0.9 % Sodium Chloride Mini Bag 100 ML IVPB SCH ×2 (10:00→16:59)
[2020-08-29 11:47] LABS: C-Reactive Protein 31 mg/L (Less than 10)
[2020-08-29] MEDS ORDERED: Tdap (Boostrix) Vaccine 0.5 ML SYRINGE IM ONE (11:51)
[2020-08-29] MEDS: Gabapentin 400 MG CAPSULE PO SCH ×2 (16:12→21:45)
[2020-08-29] MEDS: *HR* Heparin 5,000 UNIT/ML VIAL SQ SCH (19:01)
[2020-08-29] MEDS ORDERED: QUEtiapine Fumarate 300 MG TABLET PO SCH (21:00)
[2020-08-29] MEDS: Insulin DETEMIR 100 UNIT/ML X5UNITS SUBQ SCH (21:45)
[2020-08-30] MEDS: Insulin LISPRO 300 UNITS/3 ML VIAL SUBQ SCH ×6 (01:18→20:58)
[2020-08-30] MEDS: Piperacillin/Tazobactam 3.375 GM in 0.9 % Sodium Chloride Mini Bag 100 ML IVPB SCH ×3 (01:21→16:35)
[2020-08-30] MEDS: *HR* Heparin 5,000 UNIT/ML VIAL SQ SCH ×2 (06:04→16:36)
[2020-08-30] MEDS ORDERED: Vancomycin 1,250 MG/262.5 ML IV.SOLN IVPB SCH (07:00)
[2020-08-30] MEDS ORDERED: Insulin DETEMIR 100 UNIT/ML X5UNITS SUBQ SCH (09:00)
[2020-08-30] MEDS: Gabapentin 400 MG CAPSULE PO SCH ×3 (09:42→21:01)
[2020-08-30] MEDS: clonazePAM 1 MG TABLET PO SCH ×2 (09:43→21:01)
[2020-08-30] MEDS ORDERED: Lidocaine 1% 20 ML MDV ONE (11:30)
[2020-08-30] MEDS ORDERED: Lidocaine -MPF 2% 2 ML VIAL ONE (12:08)
[2020-08-30] MEDS ORDERED: *HR* Propofol 200 MG/20 ML VIAL IVP ONE (12:08)
[2020-08-30] MEDS ORDERED: *HR* FentaNYL (PF) 100 MCG/2 ML VIAL ONE ×2 (12:08→13:58)
[2020-08-30] MEDS ORDERED: Naloxone 0.4 MG/ML INJ IVP PRN (12:57)
[2020-08-30] MEDS ORDERED: D5% in Water 1,000 ML IVC PRN (12:57)
[2020-08-30] MEDS ORDERED: *HR* Dextrose 50 % in Water (Vial) 50 ML VIAL IVP PRN (12:57)
[2020-08-30] MEDS ORDERED: Ondansetron 4 MG/2 ML VIAL IVP PRN (12:57)
[2020-08-30] MEDS ORDERED: Dextrose Gel 15 GM/37.5 ML TUBE PO PRN ×2 (12:57)
[2020-08-30] MEDS ORDERED: Ondansetron 4 MG/2 ML VIAL ONE (14:04)
[2020-08-30] MEDS: *HR* HYDROcodone/Acet 5/325 mg TABLET PO PRN (14:20)
[2020-08-30] MEDS ORDERED: clonazePAM 1 MG TABLET PO SCH (15:00)
[2020-08-30] MEDS ORDERED: *HR* HYDROmorphone (PF) 1 MG/ML SYRINGE IVP ONE (16:36)
[2020-08-30] MEDS ORDERED: Insulin LISPRO 300 UNITS/3 ML VIAL SUBQ SCH (18:00)
[2020-08-30] MEDS ORDERED: Morphine Sulfate 2 MG/ML SYRINGE IVP ONE ×2 (18:22)
[2020-08-30] MEDS ORDERED: Acetaminophen IV 1,000 MG/100 ML BAG IVPB PRN (18:23)
[2020-08-30] MEDS ORDERED: *HR* FentaNYL PATCH 12 MCG PATCH TD SCH (18:30)
[2020-08-30] MEDS: Vancomycin 1,250 MG/262.5 ML IV.SOLN IVPB SCH (19:32)
[2020-08-30] MEDS: QUEtiapine Fumarate 300 MG TABLET PO SCH (21:01)
[2020-08-30] MEDS: Insulin DETEMIR 100 UNIT/ML X5UNITS SUBQ SCH (21:01)
[2020-08-31] MEDS: Piperacillin/Tazobactam 3.375 GM in 0.9 % Sodium Chloride Mini Bag 100 ML IVPB SCH ×3 (00:02→16:16)
[2020-08-31 01:45] LABS: Basophils # 0.1 K/mcL (0.0-0.2); Basophils % 0.8 %; Eosinophils # 0.2 K/mcL (0.0-0.6); Eosinophils % 2.8 %; Hematocrit 40.3 % (35.3-44.9); Hemoglobin 12.9 g/dL (11.5-15.4); Immature Granulocytes % 0.5 % (0-4); Lymphocytes # 1.7 K/mcL (0.6-4.6); Lymphocytes % 28.3 %; Mean Corpuscular Hemoglobin 27.4 pg (28.0-33.3); Mean Corpuscular Volume 85.6 fL (83.0-100.0); Mean Platelet Volume 10.8 fL (9.4-12.4); Monocytes # 0.4 K/mcL (0.0-1.3); Monocytes % 6.6 %; Neutrophils # 3.7 K/mcL (1.6-8.9); Platelet Count 175 K/mcL (140-400); Red Blood Count 4.71 M/mcL (3.82-4.97); Red Cell Distribution Width 13.5 % (11.5-14.5); White Blood Count 6.1 K/mcL (4.3-11.1)
[2020-08-31 01:59] LABS: BUN/Creatinine Ratio 22 (6-26); Blood Urea Nitrogen 14 mg/dL (6-20); Calcium 8.5 mg/dL (8.6-10.3); Carbon Dioxide 23 mEq/L (23-29); Chloride 102 mEq/L (98-107); Glucose 305 mg/dL (70-105); Magnesium 1.8 mg/dL (1.6-2.6); Osmolality,Calculated 286 (280-300); Phosphorous 3.5 mg/dL (2.7-4.5); Potassium 4.3 mEq/L (3.5-5.1); Sodium 132 mEq/L (136-145); eGFR For African Americans > 60 (> 60); eGFR For Non-African Americans > 60 (> 60)
[2020-08-31] MEDS: *HR* HYDROcodone/Acet 5/325 mg TABLET PO PRN ×3 (02:36→18:41)
[2020-08-31] MEDS: clonazePAM 1 MG TABLET PO SCH ×3 (05:59→20:28)
[2020-08-31] MEDS: *HR* Heparin 5,000 UNIT/ML VIAL SQ SCH ×2 (05:59→17:32)
[2020-08-31] MEDS: Vancomycin 1,250 MG/262.5 ML IV.SOLN IVPB SCH ×2 (07:06→18:40)
[2020-08-31] MEDS: Insulin LISPRO 300 UNITS/3 ML VIAL SUBQ SCH ×7 (08:07→20:29)
[2020-08-31] MEDS: Gabapentin 400 MG CAPSULE PO SCH ×3 (08:08→20:30)
[2020-08-31] MEDS: Insulin DETEMIR 100 UNIT/ML X5UNITS SUBQ SCH ×2 (09:22→20:29)
[2020-08-31] MEDS ORDERED: Ketorolac 30 MG/ML VIAL IVP ONE (13:45)
[2020-08-31] MEDS ORDERED: *HR* FentaNYL PATCH 50 MCG PATCH TD SCH (14:00)
[2020-08-31] MEDS: QUEtiapine Fumarate 300 MG TABLET PO SCH (20:30)
[2020-08-31] MEDS: Melatonin 3 MG TABLET PO PRN (20:31)
[2020-09-01] MEDS: Piperacillin/Tazobactam 3.375 GM in 0.9 % Sodium Chloride Mini Bag 100 ML IVPB SCH ×4 (01:34→23:41)
[2020-09-01] MEDS: *HR* HYDROcodone/Acet 5/325 mg TABLET PO PRN ×2 (06:36→13:50)
[2020-09-01] MEDS: Vancomycin 1,250 MG/262.5 ML IV.SOLN IVPB SCH ×2 (06:36→18:28)
[2020-09-01] MEDS: clonazePAM 1 MG TABLET PO SCH ×3 (06:36→22:17)
[2020-09-01] MEDS: *HR* Heparin 5,000 UNIT/ML VIAL SQ SCH ×2 (06:37→18:28)
[2020-09-01] MEDS: Gabapentin 400 MG CAPSULE PO SCH ×3 (08:33→20:49)
[2020-09-01] MEDS: Insulin LISPRO 300 UNITS/3 ML VIAL SUBQ SCH ×7 (08:34→20:49)
[2020-09-01] MEDS: Insulin DETEMIR 100 UNIT/ML X5UNITS SUBQ SCH ×2 (08:38→20:49)
[2020-09-01] MEDS: QUEtiapine Fumarate 300 MG TABLET PO SCH (20:49)
[2020-09-01] MEDS: Melatonin 3 MG TABLET PO PRN (22:17)
[2020-09-02] MEDS: clonazePAM 1 MG TABLET PO SCH ×2 (05:48→14:53)
[2020-09-02] MEDS: *HR* Heparin 5,000 UNIT/ML VIAL SQ SCH (05:48)
[2020-09-02] MEDS: Vancomycin 1,250 MG/262.5 ML IV.SOLN IVPB SCH (06:35)
[2020-09-02 08:28] LABS: BUN/Creatinine Ratio 19 (6-26); Blood Urea Nitrogen 16 mg/dL (6-20); Calcium 8.9 mg/dL (8.6-10.3); Carbon Dioxide 29 mEq/L (23-29); Chloride 99 mEq/L (98-107); Glucose 253 mg/dL (70-105); Magnesium 1.6 mg/dL (1.6-2.6); Osmolality,Calculated 284 (280-300); Phosphorous 3.4 mg/dL (2.7-4.5); Potassium 4.2 mEq/L (3.5-5.1); Sodium 132 mEq/L (136-145); eGFR For African Americans > 60 (> 60); eGFR For Non-African Americans > 60 (> 60)
[2020-09-02] MEDS ORDERED: levoFLOXacin 750 MG TABLET PO SCH (09:00)
[2020-09-02] MEDS: Gabapentin 400 MG CAPSULE PO SCH ×2 (09:47→14:53)
[2020-09-02] MEDS: Insulin LISPRO 300 UNITS/3 ML VIAL SUBQ SCH ×5 (09:47→16:35)
[2020-09-02] MEDS: Insulin DETEMIR 100 UNIT/ML X5UNITS SUBQ SCH (09:50)
[2020-09-02] MEDS: metroNIDAZOLE 500 MG TABLET PO SCH ×2 (12:14→14:54)
[2020-09-02 15:22] VITALS: BP 123/79
== END 2020-09-02 17:19 | disposition home health service (06) | DRG 580 ==
LOC: EMEROOARM 14:31 → 3NENU 14:31 → SUATTDRO 21:03 → 3NENU 22:19
PROVIDERS: ADMIT Family Medicine; ATTEND Internal Medicine